=== PATIENT | male | born 1960 | race Hispanic/Latino ===

== ENCOUNTER 2020-11-23 07:16 | Outpatient (CLI) | payer MEDICARE, SELFPAY ==
--- NOTE | ~2020-11-23 | NM_ITS ---
EXAMINATION: NM bone scan whole body EXAM DATE: 11/23/2020 10:42 INDICATION: Prostate cancer. TECHNIQUE: Bone scan was performed after injection of 27.2 mCi technetium 99 HDP and planar whole bod y images were obtained. COMPARISON: CT abdomen pelvis same date. FINDINGS: Images demonstrate expected uptake within the osseous skeletal, with superimposed scattered polyarticular osteoarthritis likely correlating to regions of increased periarticular activity. No f indings which are specific for osteoblastic disease. Physiologic renal and bladder activity. IMPRESSION: Polyarticular osteoarthritis. No evidence of osteoblastic disease. Reviewed, dictated and finalized at location A.
--- NOTE | ~2020-11-23 | CT_ITS ---
EXAMINATION: CT abdomen pelvis w con DATE: 11/23/2020 08:03 INDICATION: Prostate cancer TECHNIQUE: Computed tomography (CT) of the abdomen and pelvis was performed with 100 cc Omnipaque 350 intravenous contrast. The dose-length product was 552.26 mGy-cm. Automated exposure control and iter ative reconstruction technique were employed. COMPARISON: None. FINDINGS: There is an 8 mm left lower lobe nodule which appears some solid, image 12. Heart size is n ormal. No significant pleural or pericardial effusion. No significant vascular abnormality. No lympha denopathy. Gallbladder is present. Fatty infiltration of the liver. There is a 2.4 cm right renal cys t. Smaller subcentimeter hypodensities of the right kidney are most likely cysts. The spleen, pancrea s, adrenal glands and left kidney are unremarkable. Gallbladder is present. Bowel pattern is nonobstr uctive. No significant vascular abnormality. No lymphadenopathy. Prostate gland is enlarged and heterogeneous with prominent bladder base impression. There is bladder wall thickening, likely due to outlet obstruction. No lytic or blastic lesions are identified. Mild lower thoracic and lumbar spondylosis. IMPRESSION: 1. Enlarged heterogeneous prostate gland causing bladder base impression, with probable bladder outle t obstruction resulting in bladder wall thickening. 2: Subsolid left lower lobe nodule measuring 8mm. This is probably benign. Follow-up six-month interv al low dose CT chest recommended. Reviewed, dictated and finalized at location B. IMPRESSION: 1. Enlarged heterogeneous prostate gland causing bladder base impression, with probable bladder outlet obstruction resulting in bladder wall thickening. 2: Subsolid left lower lobe nodule measuring 8mm. This is probably benign. Foll ow-up six-month interval low dose CT chest recommended.
[2020-11-23 07:58] LABS: Estimated Glomerular Filt Rate 52
== END 2020-11-23 07:17 | disposition home or self-care (01) ==
LOC: ANHIMG 07:18
PROVIDERS: PCP Internal Medicine; Visit Provider Urology
DX: C61 Malignant neoplasm of prostate (principal); M19.90 Unspecified osteoarthritis, unspecified site; R91.1 Solitary pulmonary nodule
CPT/HCPCS: 74177; 78306; A9561; Q9967

== ENCOUNTER 2021-01-18 10:35 | Outpatient (CLI) | payer MEDICARE, SELFPAY ==
--- NOTE | ~2021-01-18 | MR_ITS ---
EXAMINATION: MR pelvis wo/w con INDICATION: Prostate cancer TECHNIQUE: 3D Axial T2 Cube, Axial 2D FIESTA, Coronal SSFSE ARC, Axial and Coronal 2D FIESTA FatSat, Axial T2 FS, Axial SSFSE BH ARC, Axial 3D DualEcho BH, Axial SSFSE-IR Enrique, Axial DWI b=600, pre and d ynamic postcontrast Axial LAVA ARC, WATER:POST Cor LAVA-FLEX COMPARISON: CT, 11/23/2020 CONTRAST: Multihance, 17 cc FINDINGS: There is a 1.4 cm area of T2 signal hypointensity and corresponding restricted diffusion in the left peripheral zone of the prostate which could reflect patient's known malignancy. Biopsy mate rial is seen between the rectum and prostate. Prostate is enlarged. There are no pathologically enlar ged pelvic lymph nodes. There is circumferential wall thickening of the urinary bladder. There are no dilated loops of bowel. No free pelvic fluid is identified. IMPRESSION: 1. No evidence of metastatic disease. 2. Signal abnormality within the left peripheral zone of the prostate which may reflect patient's kno wn malignancy. Reviewed, dictated and finalized at location A. IMPRESSION: 1. No evidence of metastatic disease. 2. Signal abnormality within the left peripheral zone of the prostate which may reflect patient's known malignancy.
[2021-01-18 11:13] LABS: Estimated Glomerular Filt Rate 52
== END 2021-01-18 10:36 | disposition home or self-care (01) ==
PROVIDERS: PCP Internal Medicine; Visit Provider Radiology Radiation Oncology
DX: C61 Malignant neoplasm of prostate (principal)
CPT/HCPCS: 72197; A9577

== ENCOUNTER 2022-05-26 11:29 | Outpatient (CLI) | payer MEDICARE, SELFPAY ==
[2022-05-26 19:00] LABS: Basophils Percent Auto 0.8 % (0.2-1.2); Eosinophils Absolute Auto 0.1 K/mm3 (0-0.3); Eosinophils Percent Auto 3.4 % (0-4.4); Hematocrit 43.4 % (42.0-52.0); Hemoglobin 14.2 g/dL (14.0-18.0); Lymphocytes Absolute Auto 1.02 K/mm3 (0.9-3.2); Lymphocytes Percent Auto 28.7 % (18.3-44.2); Mean Corpuscular HGB Conc 32.7 g/dl (32-36); Mean Corpuscular Hemoglobin 30.5 pg (26-34); Mean Corpuscular Volume 93.3 fl (80-100); Mean Platelet Volume 10.9 fl (7.4-10.4); Monocytes Absolute Auto 0.3 K/mm3 (0.1-0.6); Monocytes Percent Auto 7.9 % (2.6-8.5); Neutrophils Absolute Auto 2.1 K/mm3 (1.3-6.7); Neutrophils Percent Auto 59.2 % (45.5-73.1); Platelet Count Result 218 k/mm3 (150-375); Red Blood Count 4.65 M/mm3 (4.6-6.20); Red Cell Distribution Width 13.2 % (11.5-14.5); White Blood Count 3.6 K/mm3 (4.5-10.0)
[2022-05-26 19:12] LABS: Alanine Aminotransferase 23 U/L (6-50); Albumin Level 4.4 g/dL (3.5-5.1); Alkaline Phosphatase 68 U/L (38-126); Anion Gap 10 mmol/L (8-16); Aspartate Amino Transferase 29 U/L (17-59); Bilirubin,Total 0.4 mg/dL (0.2-1.3); Blood Urea Nitrogen 19 mg/dL (9-20); Calcium 9.1 mg/dL (8.4-10.2); Carbon Dioxide 28 mmol/L (22-30); Chloride 101 mmol/L (98-107); Cholesterol 184 mg/dL (0-200); Estimated Glomerular Filt Rate > 60; Glucose 106 mg/dL (65-110); HDL Direct 39 mg/dL; Potassium 3.8 mmol/L (3.4-5.0); Sodium 139 mmol/L (137-145); Triglycerides 130 mg/dL (<150)
[2022-05-26 19:18] LABS: Add Urine Microscopic? NO; Appearance Urine Clear (Clear); Bilirubin Urine Negative (Negative); Blood Urine Negative (Negative); Color Urine Yellow (Yellow); Glucose Urine UA Negative (Negative); Ketones Urine Negative (Negative); Leukocyte Esterase Ur Negative LEU/UL (NEGATIVE); Nitrate Urine Negative (Negative); Protein Urine Negative (Negative); Specific Grav Ur 1.015 (1.001-1.035); Urobilinogen Urine 0.2 mg/dL (<2.0)
[2022-05-26 19:22] LABS: LDL Cholesterol Direct 104 mg/dL
[2022-05-26 19:23] LABS: Mucus Urine Rare /lpf; WBC Urine 0-3 /hpf (0-3)
[2022-05-26 19:42] LABS: Prostate Specific Antigen 0.5 ng/mL (< OR = 4.0)
[2022-05-26 19:43] LABS: Creatinine Urine 75.9 mg/dL
[2022-05-26 19:46] LABS: MALB Creatinine Ratio 84.2 mg/g (0-30); Microalbumin Urine Random 63.9 mg/L (0-16.7)
== END 2022-05-26 11:30 | disposition home or self-care (01) ==
LOC: ANHGOSHLAB 11:32
PROVIDERS: PCP Internal Medicine; Visit Provider Nurse Practitioner
DX: E78.5 Hyperlipidemia, unspecified (principal); C61 Malignant neoplasm of prostate; I10 Essential (primary) hypertension; R10.9 Unspecified abdominal pain
CPT/HCPCS: 36415; 80053; 80061; 81003; 82043; 84153; 85025

== ENCOUNTER 2022-09-05 13:18 | Outpatient (CLI) | payer MEDICARE, MEDICAID, SELFPAY ==
--- NOTE | ~2022-09-05 | US_ITS ---
US soft tissue chest DATE: 09/05/2022 13:57 INDICATION: Localized swelling, mass, lump, left chest TECHNIQUE: Real-time and color flow imaging targeted at area of clinical complaint of 1:00 left breas t lump 6 cm from nipple COMPARISON: None FINDINGS: Targeted ultrasound and color flow imaging at left breast 1:00 6 cm from the nipple reveals a parallel circumscribed peripherally hyperechoic centrally isoechoic lesion measuring up to approxi mately 6.6 x 16 x 9 mm. Hyperechoic area is consistent with fatty tissue. No suspicious shadowing or vascularity. This likely a benign lipoma. IMPRESSION: Probable 6.6 x 16 mm lipoma Reviewed, dictated and finalized at Location A. Reviewed, dictated and finalized at location A. [facility] BLANCHER IMPRESSION: Probable 6.6 x 16 mm lipoma
== END 2022-09-05 13:19 | disposition home or self-care (01) ==
LOC: ANHIMG 13:24
PROVIDERS: PCP Internal Medicine; Visit Provider Nurse Practitioner
DX: R22.2 Localized swelling, mass and lump, trunk (principal)
CPT/HCPCS: 76604

== ENCOUNTER 2023-03-27 08:42 | Outpatient (CLI) | payer OTHER, SELFPAY ==
[2023-03-27 12:00] LABS: Basophils Percent Auto 0.9 % (0.2-1.2); Eosinophils Absolute Auto 0.1 K/mm3 (0-0.3); Eosinophils Percent Auto 2.9 % (0-4.4); Hematocrit 41.6 % (42.0-52.0); Hemoglobin 13.4 g/dL (14.0-18.0); Lymphocytes Percent Auto 31.4 % (18.3-44.2); Mean Corpuscular HGB Conc 32.2 g/dl (32-36); Mean Corpuscular Hemoglobin 30.2 pg (26-34); Mean Corpuscular Volume 93.7 fl (80-100); Mean Platelet Volume 10.3 fl (7.4-10.4); Monocytes Absolute Auto 0.3 K/mm3 (0.1-0.6); Monocytes Percent Auto 8.9 % (2.6-8.5); Neutrophils Percent Auto 55.9 % (45.5-73.1); Platelet Count Result 222 k/mm3 (150-375); Red Blood Count 4.44 M/mm3 (4.6-6.20); Red Cell Distribution Width 14.6 % (11.5-14.5); White Blood Count 3.5 K/mm3 (4.5-10.0)
[2023-03-27 12:18] LABS: Alanine Aminotransferase 21 U/L (6-50); Albumin Level 4.2 g/dL (3.5-5.1); Alkaline Phosphatase 55 U/L (38-126); Anion Gap 6 mmol/L (8-16); Aspartate Amino Transferase 44 U/L (17-59); Bilirubin,Total 0.4 mg/dL (0.2-1.3); Blood Urea Nitrogen 22 mg/dL (9-20); Calcium 8.6 mg/dL (8.4-10.2); Carbon Dioxide 27 mmol/L (22-30); Chloride 107 mmol/L (98-107); Cholesterol 216 mg/dL (0-200); Estimated Glomerular Filt Rate > 60; Glucose 89 mg/dL (65-110); HDL Direct 38 mg/dL; Potassium 4.2 mmol/L (3.4-5.0); Sodium 140 mmol/L (137-145); Triglycerides 73 mg/dL (<150)
[2023-03-27 12:29] LABS: LDL Cholesterol Direct 131 mg/dL
== END 2023-03-27 08:43 | disposition home or self-care (01) ==
PROVIDERS: PCP Internal Medicine; Visit Provider Nurse Practitioner
DX: E78.5 Hyperlipidemia, unspecified (principal); I10 Essential (primary) hypertension; Z13.29 Encounter for screening for other suspected endocrine disorder; D72.819 Decreased white blood cell count, unspecified
CPT/HCPCS: 36415; 80053; 80061; 85025

== ENCOUNTER 2023-04-15 09:51 | Outpatient (CLI) | payer OTHER, SELFPAY ==
--- NOTE | ~2023-04-15 | US_ITS ---
Limited Abdominal Sonogram: Real-time sonographic imaging of the right upper quadrant was performed. Clinical History: Right upper quadrant pain Findings: The liver appears normal with no evidence of mass lesion or bile duct dilatation. Main por edinson vein demonstrates normal direction of flow. The gallbladder is well distended, and appears normal with no evidence of gallstone or wall thickening. The common bile duct measures 5 mm. The visualize d pancreas, aorta, and IVC are unremarkable. Impression: No significant abnormality seen. Reviewed, dictated and finalized at location M. Impression: No significant abnormality seen.
== END 2023-04-15 09:52 | disposition home or self-care (01) ==
LOC: ANHIMG 09:52
PROVIDERS: PCP Internal Medicine; Visit Provider Nurse Practitioner
DX: R10.11 Right upper quadrant pain (principal)
CPT/HCPCS: 76705

== ENCOUNTER 2023-05-12 10:38 | Outpatient (CLI) | payer OTHER, SELFPAY ==
--- NOTE | ~2023-05-12 | CT_ITS ---
EXAMINATION: CT abdomen pelvis wo con DATE: 05/12/2023 11:13 INDICATION: Right upper quadrant abdominal pain TECHNIQUE: Computed tomography (CT) of the abdomen and pelvis was performed without intravenous contr ast. Automated exposure control and iterative reconstruction technique were employed. Exam dose: 102 1.47 mGy-cm total exam DLP. COMPARISON: 04/15/2023 limited abdominal ultrasound examination 11/23/2020 CT abdomen pelvis FINDINGS: The lung bases are clear of infiltrate or consolidation. Normal heart size. No pericardial or pleural effusion. No hepatic, splenic, pancreatic, and adrenal space-occupying mass lesion. Gallbladder, bile ducts and pancreatic duct are unremarkable. Stable approximately 2.4 cm right renal cyst compared to 11/23/2020. No urinary tract calculus or hydroureteronephrosis is detected. There is prominent diffuse thickening of the urinary bladder wall, likely due to prostatomegaly. Ther e are radiopaque seeds in the prostate gland. Normal caliber of the abdominal aorta. No intraperitoneal or retroperitoneal or pelvic mass lesion or adenopathy or ascites is detected. Small bilateral fat-containing inguinal hernias. The appendix is not identified. There is minimal diverticulosis of the colon. No bowel obstruction, b owel wall thickening, pneumatosis or intraperitoneal free air is detected. Diffuse idiopathic skeletal hyperostosis of the thoracic spine. No suspicious osteolytic or osteoblastic lesions are noted. IMPRESSION: 2.4 cm stable right renal cyst Prostatomegaly and prominent diffuse thickening or bladder wall; prostate radiopaque seeds Minimal colonic diverticulosis; no CT evidence of diverticulitis Reviewed, dictated and finalized at Location A. Reviewed, dictated and finalized at location L. IMPRESSION: 2.4 cm stable right renal cyst Prostatomegaly and prominent diffuse thickening or bladder wall; prostate radio paque seeds Minimal colonic diverticulosis; no CT evidence of diverticulitis
== END 2023-05-12 10:39 | disposition home or self-care (01) ==
PROVIDERS: PCP Internal Medicine; Visit Provider Nurse Practitioner
DX: K57.30 Diverticulosis of large intestine without perforation or abscess without bleeding (principal); N28.1 Cyst of kidney, acquired
CPT/HCPCS: 74176

== ENCOUNTER 2023-09-01 10:41 | Outpatient (CLI) | payer MEDICARE, MEDICAID, SELFPAY ==
--- NOTE | ~2023-09-01 | CT_ITS ---
EXAMINATION: CT abdomen pelvis wo/w con DATE: 09/01/2023 11:25 INDICATION: Gross hematuria TECHNIQUE: Computed tomography (CT) of the abdomen and pelvis was performed without intravenous contr ast. CT of the abdomen and pelvis was then performed with a total of 130 mL Omnipaque 350 intravenous contrast using a double-bolus technique for simultaneous opacification of the renal parenchyma and r enal collecting system. The dose-length product (DLP) was 1542.01 mGy-cm. Automated exposure control and iterative reconstruction technique were employed. COMPARISON: 05/12/2023 FINDINGS: Minimal dependent atelectasis is present in the lung bases. The heart size is normal. The l iver, spleen, pancreas, gallbladder, and adrenal glands are normal. Cysts of the kidneys measure up t o 2.5 cm on the right. No stones are identified in the kidneys, ureters, or bladder. No hydronephrosi s or hydroureter. No suspicious renal or urothelial lesion identified. The enlarged prostate projects into the bladder. There is circumferential wall thickening of the urinary bladder. No pathologically enlarged abdominal or pelvic lymph nodes are identified. No free intraperitoneal gas or evidence of bowel obstruction. There is mild lumbar spondylosis. Colonic diverticulosis is present without eviden ce of diverticulitis. IMPRESSION: 1. Circumferential wall thickening of the urinary bladder which could reflect chronic cystitis or chr onic outlet obstruction. No suspicious renal or urothelial lesion identified. Reviewed, dictated and finalized at location B. INTERPRETER IMPRESSION: 1. Circumferential wall thickening of the urinary bladder which could reflect c hronic cystitis or chronic outlet obstruction. No suspicious renal or urothelia l lesion identified.
[2023-09-01 11:06] LABS: Estimated Glomerular Filt Rate > 60
== END 2023-09-01 10:42 | disposition home or self-care (01) ==
LOC: ANHIMG 10:45
PROVIDERS: PCP Internal Medicine; Visit Provider Physician Assistant
DX: R31.0 Gross hematuria (principal)
CPT/HCPCS: 74178; Q9967

== ENCOUNTER 2023-09-25 11:39 | Outpatient (CLI) | payer MEDICARE, MEDICAID, SELFPAY ==
[2023-09-25 18:58] LABS: Basophils Percent Auto 0.3 % (0.2-1.2); Eosinophils Absolute Auto 0.1 K/mm3 (0-0.3); Hematocrit 42.5 % (42.0-52.0); Hemoglobin 13.6 g/dL (14.0-18.0); Immature Granulocyte Absolute 0.01 K/mm3 (0.00-0.031); Immature Granulocyte Percent A 0.3 % (0-0.5); Lymphocytes Absolute Auto 0.99 K/mm3 (0.9-3.2); Lymphocytes Percent Auto 28.5 % (18.3-44.2); Mean Corpuscular Hemoglobin 29.9 pg (26-34); Mean Corpuscular Volume 93.4 fl (80-100); Monocytes Absolute Auto 0.3 K/mm3 (0.1-0.6); Monocytes Percent Auto 8.6 % (2.6-8.5); Neutrophils Absolute Auto 2.1 K/mm3 (1.3-6.7); Neutrophils Percent Auto 60.3 % (45.5-73.1); Platelet Count Result 237 k/mm3 (150-375); Red Blood Count 4.55 M/mm3 (4.6-6.20); Red Cell Distribution Width 15.2 % (11.5-14.5); White Blood Count 3.5 K/mm3 (4.5-10.0)
[2023-09-25 19:01] LABS: Iron 91 ug/dL (49-181)
[2023-09-25 19:11] LABS: Percent Iron Saturation 32 % (20-50)
[2023-09-25 19:17] LABS: Cholesterol 187 mg/dL (0-200); HDL Direct 40 mg/dL; Triglycerides 77 mg/dL (<150)
[2023-09-25 19:28] LABS: LDL Cholesterol Direct 130 mg/dL
[2023-09-25 19:48] LABS: Thyroid Stimulating Hormone 0.925 uIU/mL (0.465-4.680)
[2023-09-25 20:24] LABS: Folic Acid 9.1 ng/mL (2.76->20)
== END 2023-09-25 11:40 | disposition home or self-care (01) ==
PROVIDERS: PCP Internal Medicine; Visit Provider Nurse Practitioner
DX: E78.2 Mixed hyperlipidemia (principal); D64.9 Anemia, unspecified; D72.819 Decreased white blood cell count, unspecified
CPT/HCPCS: 36415; 80061; 82607; 82728; 82746; 83540; 83550; 84443; 85025

== ENCOUNTER 2024-08-18 09:38 | Outpatient (CLI) | payer MEDICARE, MEDICAID, SELFPAY ==
[2024-08-18 18:20] LABS: Basophils Percent Auto 0.2 % (0.2-1.2); Eosinophils Absolute Auto 0.1 K/mm3 (0-0.3); Eosinophils Percent Auto 3.5 % (0-4.4); Hematocrit 43.6 % (42.0-52.0); Immature Granulocyte Absolute 0.01 K/mm3 (0.00-0.031); Immature Granulocyte Percent A 0.2 % (0-0.5); Lymphocytes Absolute Auto 1.31 K/mm3 (0.9-3.2); Lymphocytes Percent Auto 32.7 % (18.3-44.2); Mean Corpuscular HGB Conc 32.1 g/dl (32-36); Mean Corpuscular Hemoglobin 29.9 pg (26-34); Mean Platelet Volume 10.9 fl (7.4-10.4); Monocytes Absolute Auto 0.3 K/mm3 (0.1-0.6); Neutrophils Absolute Auto 2.2 K/mm3 (1.3-6.7); Neutrophils Percent Auto 55.4 % (45.5-73.1); Platelet Count Result 235 k/mm3 (150-375); Red Blood Count 4.69 M/mm3 (4.6-6.20); Red Cell Distribution Width 14.3 % (11.5-14.5)
[2024-08-18 19:11] LABS: Alanine Aminotransferase 16 U/L (6-50); Alkaline Phosphatase 57 U/L (38-126); Anion Gap 6 mmol/L (4-12); Aspartate Amino Transferase 29 U/L (17-59); Bilirubin,Total 0.6 mg/dL (0.2-1.3); Blood Urea Nitrogen 12 mg/dL (9-20); Calcium 9.3 mg/dL (8.4-10.2); Carbon Dioxide 30 mmol/L (22-30); Chloride 103 mmol/L (98-107); Cholesterol 197 mg/dL (0-200); Estimated Glomerular Filt Rate > 60; Glucose 99 mg/dL (65-110); HDL Direct 36 mg/dL; Potassium 4.1 mmol/L (3.4-5.0); Sodium 139 mmol/L (137-145); Triglycerides 121 mg/dL (<150)
[2024-08-18 19:23] LABS: LDL Cholesterol Direct 142 mg/dL
[2024-08-18 19:41] LABS: Prostate Specific Antigen 0.3 ng/mL (< OR = 4.0)
== END 2024-08-18 09:39 | disposition home or self-care (01) ==
LOC: ANHGOSHLAB 09:39
PROVIDERS: PCP Internal Medicine; Visit Provider Nurse Practitioner
DX: E78.2 Mixed hyperlipidemia (principal); I10 Essential (primary) hypertension; C61 Malignant neoplasm of prostate; Z13.29 Encounter for screening for other suspected endocrine disorder; D64.89 Other specified anemias
CPT/HCPCS: 36415; 80053; 80061; 82728; 84153; 85025